=== PATIENT | female | born 1990 | race Caucasian/White ===

== ENCOUNTER 2016-05-16 21:48 | Emergency (ER) | payer MEDICAID ==
[2016-05-16] MEDS ORDERED: HYDROcod/ACETAM 5/325 MG TABLET PO STA (22:47)
[2016-05-16] MEDS ORDERED: ONDANSETRON ODT 4 MG TABLET TL STA (22:47)
[2016-05-16] MEDS ORDERED: HYDROcod/ACETAM 5/325 MG TABLET ONE (22:51)
[2016-05-16] MEDS ORDERED: ONDANSETRON ODT 4 MG TABLET ONE (22:51)
== END 2016-05-16 23:34 | disposition home or self-care (01) ==
DX: G44.209 Tension-type headache, unspecified, not intractable (principal); R03.0 Elevated blood-pressure reading, without diagnosis of hypertension; Z98.1 Arthrodesis status
CPT/HCPCS: 70450; 99283; A9270; Q0162

== ENCOUNTER 2016-10-17 11:15 | Outpatient (CLI) | payer MEDICAID | END 2016-10-17 11:30 | disposition home or self-care (01) | LOC: RT.N 11:15 | PROVIDERS: ATTEND Family Medicine | DX: R07.9 Chest pain, unspecified (principal) | CPT/HCPCS: 93005 ==

== ENCOUNTER 2016-12-16 07:20 | Emergency (ER) | payer MEDICAID ==
[2016-12-16 07:32] VITALS: BP 129/75
--- NOTE | 2016-12-16 07:53 | ED Physician Documentation ---
PD HPI UPPER EXT INJURY - Stated complaint Stated Complaint: LT THUMB PX/SWOLLEN - Chief complaint Chief Complaint: Ext Problem - History obtained from History obtained from: Patient - History of Present Illness Location: Left, Other (thumb) Type of injury: Other (no injury) Timing - onset: How many days ago (2) Timing - duration: Days (2) Timing - details: Gradual onset Pain level max: 5 Pain level now: 5 Improved by: Rest Worsened by: Moving, Palpating Associated symptoms: Swelling. No: Weakness, Numbness, Tingling Similar symptoms before: Has not had sx before - Additonal information Additional information: states swelling to the L thumb. no injury. NVI. Review of Systems : denies: Now EGA Skin: denies: Rash Musculoskeletal: denies: Neck pain, Back pain Neurologic: denies: Headache PD PAST MEDICAL HISTORY - Past Medical History Past Medical History: Yes - Present Medications Home Medications: Ambulatory Orders Medication Instructions Recorded Confirmed Gabapentin [Neurontin] 100 mg PO 05/16/16 Levothyroxine [Synthroid] 88 mcg PO QDAC 05/16/16 05/16/16 Omeprazole [PriLOSEC] 20 mg PO DAILY 05/16/16 05/16/16 Cephalexin [Keflex] 500 mg PO Q6H #28 capsule 12/16/16 Ibuprofen [Motrin] 800 mg PO Q8H PRN #30 tablet 12/16/16 Sulfamethox/Trimeth 800/160 1 each PO BID #14 tablet 12/16/16 [Bactrim Ds 800/160] - Allergies Allergies/Adverse Reactions: Allergies Allergy/AdvReac Type Severity Reaction Status Date / Time doxycycline Allergy Unknown Verified 05/16/16 22:16 - Social History Does the pt smoke?: No Smoking Status: Never smoker PD ED PE NORMAL - Vitals Vital signs reviewed: Yes - General General: Alert and oriented X 3, No acute distress - Derm Derm: Warm and dry - Extremities Extremities: Other (L thumb - swelling and erythema to the medial nail fold. no pus. NVI. soft pad. ) - Neuro Neuro: Alert and oriented X 3 - Psych Psych: Normal mood, Normal affect Results - Vitals Vitals: Vital Signs - 24 hr 12/16/16 07:29 Temperature 36.3 C L Heart Rate 60 Respiratory 15 Rate Blood Pressure 129/75 O2 Saturation 97 Oxygen O2 Source Room air PD MEDICAL DECISION MAKING - ED course Complexity details: considered differential, d/w patient ED course: Patient is a 26-year-old female who presents to the emergency department with what appears to be an early left thumb paronychia. Will place on antibiotics and warm soaks 2-3 times a day. Will have her follow-up closely with her PCP for further care. Patient denies any possibility of . States she is not breast-feeding. Patient counseled regarding signs and symptoms for which I believe and urgent re-evaluation would be necessary. Patient with good understanding of and agreement to plan and is comfortable going home at this time This document was made in part using voice recognition software. While efforts are made to proofread this document, sound alike and grammatical errors may occur. Departure - Departure Disposition: 01 Home, Self Care Clinical Impression: Paronychia Condition: Good Instructions: ED Fingernail Infec Follow-Up: Wilbur Mcdonald MD [Primary Care Provider] - Within 3 Days (for wound check) Prescriptions: Cephalexin [Keflex] 500 mg PO Q6H #28 capsule Ibuprofen [Motrin] 800 mg PO Q8H PRN #30 tablet PRN Reason: PAIN &/OR FEVER Sulfamethox/Trimeth 800/160 [Bactrim Ds 800/160] 1 each PO BID #14 tablet Comments: Take all antibiotics until gone. This may worsen and need to be drained. If you are worsening, return for further evaluation. Soak the thumb 2-3 times daily in warm water.
== END 2016-12-16 07:59 | disposition home or self-care (01) ==
LOC: ED 07:20
DX: L03.012 Cellulitis of left finger (principal)
CPT/HCPCS: 99283

== ENCOUNTER 2016-12-22 20:31 | Emergency (ER) | payer MEDICAID ==
[2016-12-22] MEDS ORDERED: PHENobarb/HYOSCY/ATROPINE/SCOP 5 ML SYRINGE PO STA (21:00)
[2016-12-22] MEDS ORDERED: LIDOCAINE VISCOUS 2% 15 ML UDC MM STA (21:00)
[2016-12-22] MEDS ORDERED: SUCRALFATE 1 GM/10 ML UDC PO STA (21:00)
[2016-12-22] MEDS ORDERED: MAG HYDROX/AL HYDROX/SIMETH 30 ML UDC PO STA (21:00)
--- NOTE | 2016-12-22 21:03 | ED Physician Documentation ---
PD HPI CHEST PAIN - Stated complaint Stated Complaint: CHEST PX - Chief complaint Chief Complaint: Cardiac - History obtained from History obtained from: Patient - History of Present Illness Timing - onset: How many hours ago (1) Timing - onset during: Rest Timing - duration: Hours (1) Timing - details: Abrupt onset Pain level max: 9 Pain level now: 9 Quality: Aching, Other (burning) Location: Substernal Radiation: Jaw, Neck Improved by: Nothing (hasn't tried anything) Worsened by: Other (lying flat) Associated symptoms: Nausea. No: Shortness of air, Diaphoresis, Vomiting, Feeling faint / dizzy, General Weakness, Palpitations, Cough Similar symptoms before: Diagnosis (anxiety) - Additional information Additional information: Started after eating pizza tonight Review of Systems Ten Systems: 10 systems reviewed and negative Constitutional: denies: Fever, Chills Throat: denies: Sore throat Cardiac: denies: Palpitations Respiratory: denies: Cough, Hemoptysis, Wheezing GI: denies: Vomiting, Constipation, Diarrhea : denies: Dysuria, Frequency, Hesitancy, Now EGA Skin: denies: Rash Musculoskeletal: denies: Neck pain, Back pain Neurologic: denies: Focal weakness, Numbness PD PAST MEDICAL HISTORY - Past Medical History Past Medical History: Yes Endocrine/Autoimmune: HyPOthyroidism GI: GERD - Past Surgical History Past Surgical History: Yes Other past surgical history: Scoliosis - Present Medications Home Medications: Ambulatory Orders Medication Instructions Recorded Confirmed Gabapentin [Neurontin] 100 mg PO 05/16/16 Levothyroxine [Synthroid] 88 mcg PO QDAC 05/16/16 05/16/16 Omeprazole [PriLOSEC] 20 mg PO DAILY 05/16/16 05/16/16 Cephalexin [Keflex] 500 mg PO Q6H #28 capsule 12/16/16 Ibuprofen [Motrin] 800 mg PO Q8H PRN #30 tablet 12/16/16 Sulfamethox/Trimeth 800/160 1 each PO BID #14 tablet 12/16/16 [Bactrim Ds 800/160] Famotidine [Pepcid] 20 mg PO BID #60 tablet 12/22/16 Omeprazole [PriLOSEC] 20 mg PO DAILY #30 capsule 12/22/16 Sucralfate [Carafate] 1 gm PO ACHS #60 tablet 12/22/16 - Allergies Allergies/Adverse Reactions: Allergies Allergy/AdvReac Type Severity Reaction Status Date / Time doxycycline Allergy Unknown Verified 12/22/16 20:42 - Living Situation Living Situation: reports: With family Living Arrangement: reports: At home - Social History Does the pt smoke?: No Smoking Status: Never smoker Does the pt have substance abuse?: No - Family History Family history: reports: Non contributory PD ED PE NORMAL - Vitals Vital signs reviewed: Yes - General General: Alert and oriented X 3, Well developed/nourished, Other (Appears uncomfortable) - HEENT HEENT: PERRL, Ears normal, Moist mucous membranes, Pharynx benign - Neck Neck: Supple, no meningeal sign, No adenopathy, No JVD, No bruit - Cardiac Cardiac: RRR, No murmur, Strong equal pulses - Respiratory Respiratory: No respiratory distress, Clear bilaterally - Abdomen Abdomen: Soft, Non distended, Other (Tender to palpation epigastric and right upper quadrant. Equivocal Parson) - Derm Derm: Warm and dry, No rash - Extremities Extremities: No deformity, No edema, No calf tenderness / cord - Neuro Neuro: Alert and oriented X 3 Results - Vitals Vitals: Vital Signs - 24 hr 12/22/16 12/22/16 12/22/16 20:38 22:19 22:45 Temperature 36.9 C Heart Rate 80 56 L 58 L Respiratory 19 13 18 Rate Blood Pressure 161/106 H 115/55 L 114/68 O2 Saturation 100 99 98 Oxygen O2 Source Room air - EKG (time done) 2047 Rate: Rate (enter#) (66) Rhythm: NSR [place]: Normal Intervals: Normal [place] QRS: Normal Ischemia: Normal ST segments Computer interpretation: Agree with computer - Labs Labs: Laboratory Tests 12/22/16 12/22/16 12/22/16 21:45 21:45 21:45 WBC 5.7 RBC 4.51 Hgb 12.9 Hct 37.3 MCV 82.7 MCH 28.6 MCHC 34.6 RDW 13.8 Plt Count 228 MPV 7.3 L Neut # 3.1 Lymph # 2.0 [place] # 0.5 Eos # 0.1 Baso # 0.1 Absolute Nucleated RBC 0.00 Nucleated RBC % 0.0 Sodium 137 Potassium 3.2 L Chloride 106 Carbon Dioxide 21 Anion Gap 10.0 BUN 16 Creatinine 0.8 Estimated GFR (MDRD) 86 L Glucose 95 Calcium 9.0 Total Bilirubin 0.3 AST 20 ALT 25 Alkaline Phosphatase 49 Troponin I < 0.04 Total Protein 7.3 Albumin 3.8 Globulin 3.5 Albumin/Globulin Ratio 1.1 Lipase 36 - Rads (name of study) Right upper quadrant ultrasound Radiology: Prelim report reviewed, EMP read contemporaneously, See rad report ( No cholelithiasis, cholecystitis or biliary dilatation. Multiple hepatic steatosis. No right-sided hydronephrosis) Chest x-ray Radiology: Prelim report reviewed, EMP read contemporaneously, See rad report ( No acute abnormality) PD MEDICAL DECISION MAKING - ED course Complexity details: reviewed results, re-evaluated patient, considered differential (No ST elevation [place], no aortic dissection, no PE, no tension pneumothorax, no aortic aneurysm), d/w patient ED course: Patient is a 26-year-old female who presents to the emergency department with chest pain tonight. Resolved with GI cocktail. No acute findings on ultrasound , chest x-ray, EKG or laboratory testing. She is very well-appearing, nontoxic. Counseled regarding dietary changes and will start on a PPI and H2 petra for home. Patient counseled regarding signs and symptoms for which I believe and urgent re-evaluation would be necessary. Patient with good understanding of and agreement to plan and is comfortable going home at this time This document was made in part using voice recognition software. While efforts are made to proofread this document, sound alike and grammatical errors may occur. Tolerating p.o. well here Departure - Departure Disposition: 01 Home, Self Care Clinical Impression: GERD (gastroesophageal reflux disease) Qualifiers: Esophagitis presence: with esophagitis Qualified Code(s): K21.0 - Gastro- esophageal reflux disease with esophagitis Condition: Good Instructions: ED GERD Follow-Up: your,doctor in 1 week [Other] Prescriptions: Famotidine [Pepcid] 20 mg PO BID #60 tablet Omeprazole [PriLOSEC] 20 mg PO DAILY #30 capsule Sucralfate [Carafate] 1 gm PO ACHS #60 tablet Comments: Return if you worsen. Avoid spicy, fatty, or fried foods. Avoid caffeine and alcohol. Do not drink alcohol or drive while on narcotic pain medicine. Note that many narcotic pain relievers also contain tylenol/acetaminophen. Please ensure that your total dose of acetaminophen from all sources does not exceed 3 grams (3000mg) per day. You may constipated on this medication, take a stool softener such as "Colace" twice a day while you are on it. Also recommend a [id number] laxative such as senna or MiraLAX any day that you do not have a bowel movement. If you received narcotic pain medication in the emergency department, do not drive or operate machinery for the next 24 hours. Discharge Date/Time: 12/22/16 22:47
[2016-12-22] MEDS ORDERED: SUCRALFATE 1 GM/10 ML UDC ONE ×2 (21:10→21:16)
[2016-12-22] MEDS ORDERED: PHENobarb/HYOSCY/ATROPINE/SCOP 5 ML SYRINGE PO ONE ×2 (21:10→21:16)
[2016-12-22] MEDS ORDERED: LIDOCAINE VISCOUS 2% 15 ML UDC MM ONE ×2 (21:10→21:16)
[2016-12-22] MEDS ORDERED: MAG HYDROX/AL HYDROX/SIMETH 30 ML UDC ONE ×2 (21:10→21:16)
--- NOTE | 2016-12-22 21:29 | XRAY Preliminary Report ---
Exam: XR Chest 1 View IMPRESSION: Normal single view chest. [facility] SITE ID: [id number]
--- NOTE | 2016-12-22 21:36 | XRAY Report ---
EXAM: CHEST RADIOGRAPHY EXAM DATE: 12/22/2016 09:16 PM. CLINICAL HISTORY: Chest pain and shortness of breath for one day. COMPARISON: None. TECHNIQUE: 1 view. FINDINGS: Lungs/Pleura: No focal opacities evident. No pleural effusion. No pneumothorax. Mediastinum: Within exam limitations, the cardiomediastinal contour is normal. Other: Remote thoracic spine fusion. IMPRESSION: Normal single view chest. [facility] Referring Provider Line: [phone] SITE ID: [id number]
[2016-12-22 21:54] LABS: BASOPHILS # (AUTO) 0.1 10^3/uL (0.0-0.1); EOSINOPHILS # (AUTO) 0.1 10^3/uL (0.0-0.7); EOSINOPHILS % (AUTO) 1.4 %; HCT - HEMATOCRIT 37.3 % (37.0-47.0); HGB - HEMOGLOBIN 12.9 g/dL (12.0-16.0); LYMPHOCYTES % (AUTO) 34.4 %; MEAN CORPUSCULAR HEMOGLOBIN 28.6 pg (27.0-31.0); MEAN CORPUSCULAR HGB CONC 34.6 g/dL (32.0-36.0); MEAN CORPUSCULAR VOLUME 82.7 fL (81.0-99.0); MEAN PLATELET VOLUME 7.3 fL (7.9-10.8); MONOCYTES # (AUTO) 0.5 10^3/uL (0.0-1.0); MONOCYTES % (AUTO) 8.5 %; NEUTROPHILS # (AUTO) 3.1 10^3/uL (1.5-6.6); NEUTROPHILS % (AUTO) 54.7 %; RED BLOOD COUNT 4.51 10^6/uL (4.20-5.40); RED CELL DISTRIBUTION WIDTH 13.8 % (12.0-15.0); UNCORRECTED WHITE BLOOD COUNT 5.7 x10^3/uL; WHITE BLOOD COUNT 5.7 x10^3/uL (4.8-10.8)
[2016-12-22 22:06] LABS: ALBUMIN/GLOBULIN RATIO 1.1 (1.0-2.2); BILIRUBIN,TOTAL 0.3 mg/dL (0.2-1.0); CREATININE 0.8 mg/dL (0.4-1.0); POTASSIUM 3.2 mmol/L (3.5-5.0); TOTAL PROTEIN 7.3 g/dL (6.7-8.2)
--- NOTE | 2016-12-22 22:16 | Ultrasound Preliminary Report ---
Exam: US Abdomen Limited IMPRESSION: 1. No cholelithiasis, cholecystitis, or biliary dilation. 2. Multiple hepatic steatosis. 3. No right-sided hydronephrosis. [facility] SITE ID: [id number]
--- NOTE | 2016-12-22 22:16 | Ultrasound Report ---
EXAM: ABDOMEN ULTRASOUND LIMITED, RUQ EXAM DATE: 12/22/2016 09:46 PM. CLINICAL HISTORY: Right upper quadrant pain, nausea COMPARISON: None. TECHNIQUE: Real-time scanning was performed with static images obtained. FINDINGS: Liver: Mild increased echogenicity. No suspicious focal lesion. Liver measures 19.0 cm in length. Portal Vein: Patent with hepatopetal flow. Gallbladder: No stones, wall thickening, or sonographic Parson's sign. Biliary System: CBD measures 3.4 mm. No intrahepatic or extrahepatic ductal dilatation. Pancreas: Normal appearing head and body. Other portions are obscured by overlying structures. Right Kidney: Visualized portions of the right kidney are without significant abnormality. Right kid preeti measures 12.6 cm in length. Other: None. IMPRESSION: 1. No cholelithiasis, cholecystitis, or biliary dilation. 2. Multiple hepatic steatosis. 3. No right-sided hydronephrosis. [facility] Referring Provider Line: [phone] SITE ID: [id number]
[2016-12-22] MEDS ORDERED: ONDANSETRON ODT 4 MG TABLET TL STA (22:20)
[2016-12-22] MEDS ORDERED: FAMOTIDINE 20 MG TABLET PO STA (22:20)
[2016-12-22] MEDS ORDERED: ONDANSETRON ODT 4 MG TABLET ONE (22:32)
[2016-12-22] MEDS ORDERED: FAMOTIDINE 20 MG TABLET ONE (22:32)
[2016-12-22 22:46] VITALS: BP 114/68
== END 2016-12-22 22:47 | disposition home or self-care (01) ==
LOC: ED 20:31
DX: K21.0 Gastro-esophageal reflux disease with esophagitis (principal); E03.9 Hypothyroidism, unspecified
CPT/HCPCS: 36415; 71010; 76705; 80053; 83690; 84484; 85025; 93005; 99283; 99284; A9270; Q0162

== ENCOUNTER 2017-04-12 22:43 | Outpatient (CLI) | payer MEDICAID | END 2017-04-12 22:44 | disposition critical access hospital (66) | LOC: EMS 22:43 | PROVIDERS: ATTEND Surgery | DX: R09.89 Other specified symptoms and signs involving the circulatory and respiratory systems (principal) | CPT/HCPCS: A0425; A0429 ==

== ENCOUNTER 2017-04-12 23:01 | Emergency (ER) | payer MEDICAID ==
[2017-04-12 23:53] LABS: BASOPHILS # (AUTO) 0.1 10^3/uL (0.0-0.1); BASOPHILS % (AUTO) 1.1 %; EOSINOPHILS # (AUTO) 0.1 10^3/uL (0.0-0.7); EOSINOPHILS % (AUTO) 1.4 %; LYMPHOCYTES # (AUTO) 2.3 10^3/uL (1.5-3.5); LYMPHOCYTES % (AUTO) 33.2 %; MEAN CORPUSCULAR HEMOGLOBIN 28.1 pg (27.0-31.0); MEAN CORPUSCULAR HGB CONC 34.8 g/dL (32.0-36.0); MEAN CORPUSCULAR VOLUME 80.7 fL (81.0-99.0); MONOCYTES # (AUTO) 0.6 10^3/uL (0.0-1.0); MONOCYTES % (AUTO) 8.9 %; NEUTROPHILS # (AUTO) 3.8 10^3/uL (1.5-6.6); NEUTROPHILS % (AUTO) 55.4 %; PLT - PLATELET COUNT 239 10^3/uL (130-450); RED BLOOD COUNT 4.63 10^6/uL (4.20-5.40); RED CELL DISTRIBUTION WIDTH 13.4 % (12.0-15.0); WHITE BLOOD COUNT 6.8 x10^3/uL (4.8-10.8)
[2017-04-13 00:03] LABS: ALBUMIN 3.7 g/dL (3.2-5.5); ALBUMIN/GLOBULIN RATIO 1.2 (1.0-2.2); BILIRUBIN,TOTAL 0.3 mg/dL (0.2-1.0); CREATININE 0.6 mg/dL (0.4-1.0); TOTAL PROTEIN 6.9 g/dL (6.7-8.2)
--- NOTE | 2017-04-13 00:12 | ED Physician Documentation ---
PD HPI CHEST PAIN - Stated complaint Stated Complaint: CP - Chief complaint Chief Complaint: Cardiac - History obtained from History obtained from: Patient - History of Present Illness Timing - onset: Today Timing - onset during: Light activity Timing - details: Abrupt onset Quality: Pressure Location: Substernal Radiation: No: Jaw, Neck, Back, Abdominal, Left upper extremity, Right upper extremity Improved by: Nothing Worsened by: Exertion Associated symptoms: Shortness of air, Feeling faint / dizzy, Palpitations Similar symptoms before: No diagnosis - Additional information Additional information: c/o sudden onset irregular palpitations while at home getting ready for bed, associated with dyspnea, lightheadedness, bilateral UE paresthesias, and chest pressure. 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 similar episodes over past two months and she has appointment scheduled with a specialist (per patient) for further testing Review of Systems Cardiac: reports: Chest pain / pressure, Palpitations. 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 : None HEENT: None Psych: Panic attacks Musculoskeletal: Scoliosis Derm: None - Past Surgical History Past Surgical History: Yes - Present Medications Home Medications: Ambulatory Orders Medication Instructions Recorded Confirmed Gabapentin [Neurontin] 100 mg PO 05/16/16 Levothyroxine [Synthroid] 88 mcg PO QDAC 05/16/16 05/16/16 Omeprazole [PriLOSEC] 20 mg PO DAILY 05/16/16 05/16/16 Cephalexin [Keflex] 500 mg PO Q6H #28 capsule 12/16/16 Ibuprofen [Motrin] 800 mg PO Q8H PRN #30 tablet 12/16/16 Sulfamethox/Trimeth 800/160 1 each PO BID #14 tablet 12/16/16 [Bactrim Ds 800/160] Famotidine [Pepcid] 20 mg PO BID #60 tablet 12/22/16 Omeprazole [PriLOSEC] 20 mg PO DAILY #30 capsule 12/22/16 Sucralfate [Carafate] 1 gm PO ACHS #60 tablet 12/22/16 LORazepam [Ativan] 0.5 - 1 mg PO Q6H PRN #14 tablet 04/13/17 - Allergies Allergies/Adverse Reactions: Allergies Allergy/AdvReac Type Severity Reaction Status Date / Time doxycycline Allergy Unknown Verified 12/22/16 20:42 - Social History Does the pt smoke?: No Smoking Status: Never smoker Does the pt drink ETOH?: Yes Does the pt have substance abuse?: No PD ED PE NORMAL - Vitals Vital signs reviewed: Yes - General General: Alert and oriented X 3, No acute distress, Well developed/nourished - Neck Neck: Supple, no meningeal sign, Thyroid normal - Cardiac Cardiac: RRR, No murmur, No gallop, No rub - Respiratory Respiratory: No respiratory distress, Clear bilaterally - Abdomen Abdomen: Soft, Non tender - Extremities Extremities: No edema Results - Vitals Vitals: Vital Signs - 24 hr 04/12/17 04/12/17 04/13/17 23:01 23:57 01:59 Temperature 37.1 C Heart Rate 76 78 67 Respiratory 20 18 18 Rate Blood Pressure 122/75 106/66 127/80 O2 Saturation 100 97 97 04/13/17 03:36 Temperature Heart Rate 67 Respiratory 18 Rate Blood Pressure 108/74 O2 Saturation 100 Oxygen O2 Source Room air - EKG (time done) No standard instances Rate: Rate (enter#) (77) Rhythm: NSR [place]: Normal Intervals: Normal [place] QRS: Normal Ischemia: Normal ST segments - Labs Labs: Laboratory Tests 04/12/17 04/12/17 04/12/17 23:34 23:34 23:34 WBC 6.8 RBC 4.63 Hgb 13.0 Hct 37.3 MCV 80.7 L MCH 28.1 MCHC 34.8 RDW 13.4 Plt Count 239 MPV 7.0 L Neut # 3.8 Lymph # 2.3 [place] # 0.6 Eos # 0.1 Baso # 0.1 Absolute Nucleated RBC 0.00 Nucleated RBC % 0.1 Sodium 137 Potassium 3.2 L Chloride 105 Carbon Dioxide 22 Anion Gap 10.0 BUN 17 Creatinine 0.6 Estimated GFR (MDRD) 119 Glucose 99 Calcium 9.0 Total Bilirubin 0.3 AST 18 ALT 19 Alkaline Phosphatase 51 Troponin I < 0.04 Total Protein 6.9 Albumin 3.7 Globulin 3.2 Albumin/Globulin Ratio 1.2 Lipase 28 PD MEDICAL DECISION MAKING - ED course Complexity details: reviewed results, re-evaluated patient, considered differential, d/w patient ED course: patient had no symptoms during my H+P nor the remainder of her stay. 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 I do not see any skipped beats or dysrhythmia on what had been recorded on monitoring manager. she would likely benefit from a Holter or event monitor. Departure - Departure Disposition: 01 Home, Self Care Clinical Impression: Palpitations Condition: Good Instructions: ED Palpitations Prescriptions: LORazepam [Ativan] 0.5 - 1 mg PO Q6H PRN #14 tablet PRN Reason: Anxiety Comments: Follow up with your doctor as we discussed. You will likely need further testing to look into the possible cause of your palpitations. At this time, the tests performed tonight do not suggest a specific or dangerous diagnosis. I have provided a prescription for ativan, which is typically used for anxiety. If you have further episodes similar to tonight's episode, you can take 1-2 tablets of the ativan to see if that alleviates the symptoms. Forms: Activity restrictions Discharge Date/Time: 04/13/17 03:38
[2017-04-13] MEDS ORDERED: POTASSIUM BICARB 25 MEQ TABLET PO STA (00:34)
[2017-04-13 03:37] VITALS: BP 108/74
== END 2017-04-13 03:38 | disposition home or self-care (01) ==
LOC: EDUNIT# → SUPCPDRO 23:01 → ED 23:01
DX: R00.2 Palpitations (principal); E03.9 Hypothyroidism, unspecified; K21.9 Gastro-esophageal reflux disease without esophagitis
CPT/HCPCS: 36415; 80053; 83690; 84484; 85025; 93005; 99283; 99284; A9270

== ENCOUNTER 2017-05-03 10:35 | Outpatient (CLI) | payer MEDICAID | END 2017-05-03 10:36 | disposition home or self-care (01) | LOC: LAB.WCP 10:35 | PROVIDERS: ATTEND Physician Assistant Medical | DX: J06.9 Acute upper respiratory infection, unspecified (principal) | CPT/HCPCS: 87275; 87276 ==

== ENCOUNTER 2019-12-02 16:18 | Outpatient (CLI) | payer MEDICAID | END 2019-12-02 16:19 | disposition home or self-care (01) | LOC: COV 16:18 | PROVIDERS: ATTEND Family Medicine | DX: R05 Cough (principal); J02.9 Acute pharyngitis, unspecified; Z20.828 Contact with and (suspected) exposure to other viral communicable diseases ==

== ENCOUNTER 2022-02-21 00:15 | Emergency (ER) | payer MEDICAID ==
[2022-02-21 01:00] LABS: BASOPHILS % (AUTO) 0.5 %; EOSINOPHILS # (AUTO) 0.1 10^3/uL (0.0-0.7); EOSINOPHILS % (AUTO) 1.2 %; HCT - HEMATOCRIT 39.7 % (37.0-47.0); HGB - HEMOGLOBIN 12.1 g/dL (12.0-16.0); LYMPHOCYTES # (AUTO) 1.6 10^3/uL (1.5-3.5); LYMPHOCYTES % (AUTO) 21.3 %; MEAN CORPUSCULAR HEMOGLOBIN 23.3 pg (27.0-31.0); MEAN CORPUSCULAR HGB CONC 30.5 g/dL (32.0-36.0); MEAN CORPUSCULAR VOLUME 76.5 fL (81.0-99.0); MEAN PLATELET VOLUME 8.4 fL (7.9-10.8); MONOCYTES # (AUTO) 0.6 10^3/uL (0.0-1.0); MONOCYTES % (AUTO) 7.8 %; NEUTROPHILS # (AUTO) 5.1 10^3/uL (1.5-6.6); NEUTROPHILS % (AUTO) 68.9 %; PLT - PLATELET COUNT 329 10^3/uL (130-450); RED BLOOD COUNT 5.19 10^6/uL (4.20-5.40); RED CELL DISTRIBUTION WIDTH 15.7 % (12.0-15.0); WHITE BLOOD COUNT 7.5 x10^3/uL (4.8-10.8)
[2022-02-21 01:09] LABS: ALBUMIN 3.9 g/dL (3.2-5.5); ALBUMIN/GLOBULIN RATIO 0.9 (1.0-2.2); BILIRUBIN,TOTAL 0.3 mg/dL (0.2-1.0); CALCIUM 9.4 mg/dL (8.5-10.3); CREATININE 0.7 mg/dL (0.4-1.0); POTASSIUM 3.9 mmol/L (3.5-5.0); TOTAL PROTEIN 8.3 g/dL (6.7-8.2)
[2022-02-21 01:24] LABS: BILIRUBIN,URINE NEGATIVE (NEGATIVE); GLUCOSE, URINE (UA) NEGATIVE (NEGATIVE); KETONES,URINE (UA) NEGATIVE (NEGATIVE); LEUKOCYTE ESTERASE, URINE NEGATIVE (NEGATIVE); NITRITE,URINE NEGATIVE (NEGATIVE); OCCULT BLOOD,URINE SMALL (NEGATIVE); PROTEIN,URINE NEGATIVE (NEGATIVE); UROBILINOGEN,URINE 0.2 (NORMAL) E.U./dL (NORMAL)
[2022-02-21 01:26] LABS: CLARITY,URINE CLEAR (CLEAR); HCG UR QUAL NEGATIVE
[2022-02-21 01:34] LABS: BACTERIA,URINE Few /HPF (None Seen); RBC,URINE 0-5 /HPF (0-5); SQUAMOUS EPITHELIAL CELL,UR MOD Squamous (<= Few); WBC,URINE 0-3 /HPF (0-5)
[2022-02-21] MEDS ORDERED: SODIUM CHLORIDE 0.9% 1,000 ML IV STA (01:34)
[2022-02-21] MEDS ORDERED: HYDROmorphone 0.5 MG/0.5 ML SYRINGE IVP STA (01:34)
[2022-02-21] MEDS ORDERED: ONDANSETRON 4 MG/2 ML VIAL IVP STA (01:34)
--- NOTE | 2022-02-21 02:10 | ED Physician Documentation ---
History of Present Illness - Stated complaint Stated Complaint: ABD PX/ N,V - Chief complaint Chief Complaint: Abd Pain - History obtained from History obtained from: Patient - Additonal information Additional information: The patient comes the emergency department for chief complaint of nausea and abdominal pain. The patient has a history of GERD and Crow's esophagus and has chronic abdominal pain which she states is similar in quality. However, she feels that the intensity of the pain is more than usual this time. She does note that she had her family just ate at a restaurant and they ended up reporting the restaurant to the Department of Health after eating there yesterday, because everybody was starting to feel sick. The patient states that she vomited several times today and had diarrhea. She states that she thinks this may have set off her chronic pain. The patient states that the pain has been in her epigastric area, radiating into her chest and both upper quadrants. She states that since coming here, the pain has moved down a little more to just under her umbilicus. She states that she is mainly here because her normal stomach meds did not help the pain to go away, and she felt she needed more treatment. She denies any other complaints at this time. Review of Systems Ten Systems: 10 systems reviewed and negative Constitutional: reports: Reviewed and negative Eyes: reports: Reviewed and negative Ears: reports: Reviewed and negative Nose: reports: Reviewed and negative Throat: reports: Reviewed and negative Cardiac: reports: Reviewed and negative Respiratory: reports: Reviewed and negative GI: reports: Abdominal Pain, Nausea, Vomiting, Diarrhea : reports: Reviewed and negative Skin: reports: Reviewed and negative Musculoskeletal: reports: Reviewed and negative Neurologic: reports: Reviewed and negative Psychiatric: reports: Reviewed and negative Endocrine: reports: Reviewed and negative Immunocompromised: reports: Reviewed and negative PD PAST MEDICAL HISTORY - Past Medical History Past Medical History: Yes Cardiovascular: Other Respiratory: None Neuro: None Endocrine/Autoimmune: HyPOthyroidism GI: GERD, Other BAK[employer] HELPER: None : None HEENT: None Psych: Panic attacks Musculoskeletal: Scoliosis Derm: None - Past Surgical History Past Surgical History: Yes - Present Medications Home Medications: Ambulatory Orders Medication Instructions Recorded Confirmed Gabapentin [Neurontin] 100 mg PO DAILY 05/16/16 02/21/22 Levothyroxine [Synthroid] 88 mcg PO QDAC 05/16/16 02/21/22 Omeprazole [PriLOSEC] 20 mg PO DAILY 05/16/16 02/21/22 Famotidine [Pepcid] 20 mg PO BID #60 tablet 12/22/16 Sucralfate [Carafate] 1 gm PO ACHS #60 tablet 12/22/16 Ondansetron Odt [Zofran] 4 mg TL Q6H PRN #10 tablet 02/21/22 - Allergies Allergies/Adverse Reactions: Allergies Allergy/AdvReac Type Severity Reaction Status Date / Time doxycycline Allergy Unknown Verified 02/21/22 00:20 - Social History Does the pt smoke?: No Smoking Status: Never smoker Does the pt drink ETOH?: Yes Does the pt have substance abuse?: No - Immunizations Immunizations are current?: No Immunizations: TDAP current <10years - POLST Patient has POLST: No PD ED PE NORMAL - Vitals Vital signs reviewed: Yes - General General: Alert and oriented X 3, No acute distress, Well developed/nourished - HEENT HEENT: Atraumatic, PERRL, EOMI, Moist mucous membranes - Neck Neck: Supple, no meningeal sign - Cardiac Cardiac: RRR, No murmur, Strong equal pulses - Respiratory Respiratory: No respiratory distress, Clear bilaterally - Abdomen Abdomen: Soft, Non distended, Other (Mild epigastric tenderness and periumbilical tenderness, no rebound or guarding.) - Derm Derm: Warm and dry - Extremities Extremities: No deformity - Neuro Neuro: Alert and oriented X 3 - Psych Psych: Normal mood, Normal affect Results - Vitals Vitals: Vital Signs - 24 hr 02/21/22 02/21/22 02/21/22 00:20 01:31 02:02 Temperature 36.7 C Heart Rate 100 88 Respiratory 20 21 13 Rate Blood Pressure 143/83 H 120/76 O2 Saturation 99 96 02/21/22 02/21/22 02/21/22 02:29 03:16 05:01 Temperature Heart Rate 86 105 H Respiratory 12 13 16 Rate Blood Pressure 127/87 H O2 Saturation 100 99 Oxygen O2 Source Room air - Labs Labs: Laboratory Tests 02/21/22 02/21/22 02/21/22 00:48 00:48 01:02 WBC 7.5 RBC 5.19 Hgb 12.1 Hct 39.7 MCV 76.5 L MCH 23.3 L MCHC 30.5 L RDW 15.7 H Plt Count 329 MPV 8.4 Neut # (Auto) 5.1 Lymph # (Auto) 1.6 Otero # (Auto) 0.6 Eos # (Auto) 0.1 Baso # (Auto) 0.0 Absolute Nucleated RBC 0.00 Nucleated RBC % 0.0 Sodium 137 Potassium 3.9 Chloride 99 L Carbon Dioxide 26 Anion Gap 12.0 BUN 15 Creatinine 0.7 Estimated GFR (MDRD) 96 Glucose 116 H Calcium 9.4 Total Bilirubin 0.3 AST 20 ALT 27 Alkaline Phosphatase 54 Total Protein 8.3 H Albumin 3.9 Globulin 4.4 H Albumin/Globulin Ratio 0.9 L Lipase 32 Urine Color YELLOW Urine Clarity CLEAR Urine pH 6.0 Ur Specific Igo >=1.030 H Urine Protein NEGATIVE Urine Glucose (UA) NEGATIVE Urine Ketones NEGATIVE Urine Occult Blood SMALL H Urine Nitrite NEGATIVE Urine Bilirubin NEGATIVE Urine Urobilinogen 0.2 (NORMAL) Ur Leukocyte Esterase NEGATIVE Urine RBC 0-5 Urine WBC 0-3 Ur Squamous Epith Cells MOD Squamous H Urine Bacteria Few Ur Microscopic Review INDICATED Urine Culture Comments NOT INDICATED Urine HCG, Qual NEGATIVE PD MEDICAL DECISION MAKING - ED course Complexity details: reviewed results, re-evaluated patient, considered differential, d/w patient ED course: The patient's laboratory studies were unremarkable, and her abdominal exam was actually fairly benign. I did not feel that imaging was indicated. Her pain is similar to previous episodes but just more intense this time. The patient was given Zofran and 0.5 mg of Dilaudid IV, as well as IV fluids. She was found to be sleeping heavily upon reevaluation about 30 minutes later. The patient actually slept in the emergency department for 3 hours and upon wakening, and was ready for discharge. I have sent a prescription for Zofran to the pharmacy of her choice. Patient is advised to follow-up with her primary doctor. Departure - Departure Disposition: 01 Home, Self Care Clinical Impression: Gastroenteritis Abdominal pain Qualifiers: Abdominal location: generalized Qualified Code(s): R10.84 - Generalized abdominal pain Condition: Stable Instructions: ED Abdominal Pain Female Non-Specific Abdominal Pain, ED Gastroenteritis Viral Prescriptions: Ondansetron Odt [Zofran] 4 mg TL Q6H PRN #10 tablet PRN Reason: Nausea / Vomiting Comments: Your labs look good. There is no evidence of an emergent or serious condition going on at this point in time. Most likely, you have either picked up a little food poisoning or one of the viral illnesses that are going around, and this is exacerbated your underlying and sometimes painful condition. You have been treated with medication for both your nausea and your pain today and are doing much better. Please continue your home medications, drink plenty of fluids, and follow-up with your primary care physician as needed.
[2022-02-21 05:02] VITALS: BP 127/87
== END 2022-02-21 05:18 | disposition home or self-care (01) ==
LOC: ED 00:15
DX: K52.9 Noninfective gastroenteritis and colitis, unspecified (principal)
CPT/HCPCS: 36415; 80053; 81001; 81025; 83690; 85025; 96374; 96375; 99283; 99284; J1170; 81003; 87086

== ENCOUNTER 2023-10-18 19:13 | Outpatient (CLI) | payer MEDICAID | END 2023-10-18 19:14 | disposition EMS.NT | LOC: EMS 19:13 | DX: R45.89 Other symptoms and signs involving emotional state (principal); Y04.2XXA Assault by strike against or bumped into by another person, initial encounter; Y92.009 Unspecified place in unspecified non-institutional (private) residence as the place of occurrence of the external cause ==